=== PATIENT | female | born 1995 | race African-American/Black ===

== ENCOUNTER 2022-12-24 22:43 | Emergency (ER) | payer BC ==
[2022-12-24 23:08] LABS: #Eosinphils 0.1 10x3/uL (0.0-0.5); #Monocytes 0.7 10x3/uL (0.0-1.1); #Neutrophils 4.9 10x3/uL (1.5-8.4); %Basophils 0.3 % (0.0-2.0); %Eosinophils 1.3 % (0.0-6.0); %Lymphocytes 27.7 % (18.0-47.0); %Monocytes 8.9 % (0.0-10.0); %Neutrophils 61.5 % (40.0-75.0); Hematocrit 41.1 % (34.9-44.5); Hemoglobin 13.6 g/dL (12.0-15.5); Mean Corpuscular HGB CONC 33.1 g/dL (32.0-36.0); Mean Corpuscular Hemoglobin 30.6 pg (27.0-33.0); Mean Corpuscular Volume 92.4 fl (81.6-98.3); Mean Platelet Volume 10.1 fl (7.4-10.4); Platelet Count 290 10x3/uL (150-450); RBC Distribution Width 13.2 % (11.5-14.5); Red Blood Cell (RBC) Count 4.45 10x6/uL (3.90-5.03)
[2022-12-24 23:10] LABS: BHCG - Serum Negative (NEGATIVE)
[2022-12-24 23:11] LABS: Pregs Control Background? CLEAR/WHITE (CLR/WHITE); Pregs Control Bar Appear? YES (CONTROL BAR)
[2022-12-24 23:19] LABS: ALT (SGPT) 19 U/L (8-55); AST (SGOT) 19 U/L (5-34); Albumin 4.2 g/dL (3.5-5.0); Alkaline Phosphatase 72 U/L (40-110); Anion Gap 15 mmol/L (10-20); BUN (Urea Nitrogen) 12 mg/dL (7.0-18.7); Bilirubin, Total 0.3 mg/dL (0.2-1.2); Calc. Creatinine Clearance 0 mL/min (70-130); Calcium 9.2 mg/dL (7.8-10.44); Carbon Dioxide 23 mmol/L (22-29); Chloride 105 mmol/L (98-107); Estimated GFR 93; Globulin 3.9 g/dL (2.4-3.5); Glucose 104 mg/dL (70-105); Protein, Total 8.1 g/dL (6.0-8.3); Sodium 139 mmol/L (136-145)
[2022-12-24] MEDS ORDERED: Lorazepam 1 MG TAB ONE (23:52)
== END 2022-12-24 23:29 | disposition home or self-care (01) ==
LOC: CSHERS 22:43
DX: R56.9 Unspecified convulsions (principal)
CPT/HCPCS: 80053; 84703; 85025; 93005; 93010; 99284